=== PATIENT | female | born 1945 | race Caucasian/White ===

== ENCOUNTER → 2023-10-30 12:00 | Outpatient (REF) | payer MEDICARE, OTHER, SELFPAY ==
--- NOTE | 2023-10-02 08:23 | PN.DIAED02 ---
Referral
DSME Class Series Code: [id number]
Referred For: Diabetes Self-Management Training
PHI Release Authorization Form Signed: Yes
Patient Problems:
Current Active Problems
Problem Status Onset
Type 2 diabetes mellitus
Demographic
(1) Type 2 diabetes mellitus
Status: Acute Code(s): E11.9 - Type 2 diabetes mellitus without complications
Patient's primary language-: Italian
Education: College degree
Occupation: Retired
- Social
Primary Support Person: Self
Primary Care Takers: Self
Living Arrangements: Self
- Learning Methods
Preferred Method: Reading, Hands-on demonstration, Group discussion
Barriers to Learning: None
Glycemic Control
- Blood Glucose Monitoring Assessment
Date: 09/29/23
Blood glucose monitoring at home: Yes
Monitor Brands: Other (Unknown)
Frequency: 2x per day (new testing pattern given)
Time: fasting, after breakfast, after lunch, after dinner
- Hemoglobin A1c
Date: 09/18/23
A1C Percentage (%): 7.1 (8.5% 04/2023)
Medical History of Diabetes
Family Diabetes History: Grandfather
Previous Diabetes Education: No
Previous visit with Dietitian: No
Complications/Comorbidity/Specialist: Cataracts, Neuropathy (R. hand), Other / symptoms (Metastatic breast cancer of bone,osteoporosis, pernicious anemia)
Measures
- Anthropometrics
Height: 5 ft
Actual Weight: 137 lb 8 oz
- Blood Pressure / Pulse
Blood pressure: 124/63
- Diabetes Management
Medical Management for Diabetes: Complete physical exam (04/2023), Dental exam, Other (Covid 2021)
Self-Care
- Tobacco Usage
Do you now, or have you ever smoked?: Never smoked
- Alcohol & Drugs Usage
Drinks Alcohol: Yes
Amount/day: 1-2 drinks per day
- Meals & Dining
Meals & Dining: Patient skips meals: Yes (discussed), Food Intolerance / Allergy: No, Cultural / Advent Dietary Needs: No
Primary Food Heavy Repairer: Self
Primary Program Admin: Self
Dining Out Frequency: 1-3x per week (2)
- Physical Activity
Physical Limitation: No
Patient participates in physical Activity: Yes
Activity Types: Combination
Duration: 31-40 minutes
Frequency: 3-5x per week (5)
Intensity: Easy
- Patient-Self Assessment
Diabetes Knowledge: Good
Feelings About Diabetes: Acceptance, Sadness / Depression, Anger
General Health: Poor
Importance of Health: Extremely
Stress Level: High
Diabetes Interferes With:: Nothing
Depression Survey Score: 10
Care Plan
- Education Needs
Patient Education Needs: Diabetes disease process, Chronic complications, Acute complications, Medication, Monitoring, Physical activity, Psychosocial Adjustment, Nutritional management, Goal setting & problem solving
Recommended Diabetes Training Program based on assessment: Outpatient Diabetes Education Program
- Plan of Care
Plan of Care:
Current A1C 7.1%, down from 8.5% in 04/2023. Has a working glucometer and testing once a day. New testing pattern given to test FBS and 2 hr pp one meal/day. Paige has M/C (allot 1 test strip/day) so suggested testing every other day or 3 days
testing then 3 days off. She states she has plenty of test strips. handout on testing pattern and expected results given. Medication for diabetes is Farxiga. She appears to make healthy eating choices and is very active, [facility] [employer] [facility] and participates in classes -- and balance classes most Tues/Thurs. Paige also walks when the weather is nice. She was treated for breast cancer a few years ago with radiation and currently has metastasized to the bone(taking Ibrance).
Goals established, including making an eye appointment and directions to classroom given.
--- NOTE | 2023-10-02 09:20 | PN.DIAED04 ---
Education Record
- Education Record
Class Attended: Class 1 (pre registration 09/29/23 for outpt DSME classes starting 10/30/23.)
DSME Class Series Code: [id number]
Instructor: Registered Nurse (Ayleen Avilez, RN, BSN, [facility])
Class Curriculum:
Outpatient Diabetes Education Program:
Initial Assessment (45 minutes)
Individualized assessment
Develop personal strategies to promote health and behavior change
Development of diabetes self-management support plan
Class Length (mins): 60
Pre-Program Knowledge: Needs review / Assistance
Pre-Test Score (%): 76
Goals
- Goal 1
Being Active: Exercise more often ([facility], and walking.)
Goals To Be Evaluated: Exercise more often
- Goal 2
Healthy Eating: Make better food choices, Follow meal plan
Goals To Be Evaluated: Make better food choices. Follow meal plan
- Goal 3
Monitoring: Take blood sugar in the prescribed pattern (Handout on testing pattern and expected results given.)
Goals To Be Evaluated: Test BG-prescribed times
--- NOTE | 2023-10-31 14:19 | PN.DIAED14 ---
This is to notify you that your patient with diabetes, DANY DUNNE ( 1945), has enrolled in our diabetes self-management classes that are being held at [facility].
These classes will include an introduction to diabetes, diet, medication, exercise and prevention of complications. At the end of our class series, you will receive a report of your patient's participation and progress for your records.
Please contact me at the Diabetes Center, , if there is any particular information regarding your patient that might be helpful to me.
Sincerely,
NOHEMY Andre-, [facility]
Director
Diabetes & Nutrition Services
== END ==
LOC: DES 12:00
PROVIDERS: ATTENDING PHYSICIAN Internal Medicine
DX: E11.9 Type 2 diabetes mellitus without complications (principal)
CPT/HCPCS: 99078

== ENCOUNTER → 2023-11-06 12:00 | Outpatient (REF) | payer MEDICARE, OTHER, SELFPAY ==
--- NOTE | 2023-11-07 11:22 | PN.DIAED04 ---
Education Record
- Education Record
Class Attended: Class 2
DSME Class Series Code: [id number]
Instructor: Registered Dietitian (Marily Carvajal, RD, LDN, CDE)
Class Length (mins): 120
== END ==
LOC: DES 12:00
PROVIDERS: ATTENDING PHYSICIAN Internal Medicine
DX: E11.9 Type 2 diabetes mellitus without complications (principal)
CPT/HCPCS: 99078

== ENCOUNTER 2023-11-07 06:50 | Inpatient (IN) | payer MEDICARE, OTHER, SELFPAY ==
[2023-11-06 17:48] VITALS: BP 123/52
--- NOTE | 2023-11-06 19:06 | ED.GENMED ---
History of Present Illness
General
Chief Complaint: Abdominal Pain
Source: patient
Exam Limitations: none
Time Seen by Provider: 11/06/23 18:42
Nursing documentation reviewed up to this point in time: agreed with
History of Present Illness
History of Present Illness:
Patient is a 78-year-old female who presents to the ER for abdominal pain. Patient has a history of stage IV metastatic breast cancer and is on IBrance this morning when she had difficulty swallowing it and the coating started to dissolve in her
mouth. She had difficulty getting the pill down but finally did. She reports that she believes this upset her stomach and afterward had a lot of upper abdominal pain and vomiting. She reports she had projectile vomiting several times. Her pain
was upper abdominal region was very intense however now it has subsided and is still there but much better. She is no longer nauseous. She did have this pain however similar to this several days ago.
Past History
Past History
ED Past Medical History: Other (noncontributory )
ED Past Surgical History: Other (noncontributory )
Review of Systems
Review of Systems
Allergies reviewed?: Yes
All Other Systems: ROS reviewed and negative except as documented in HPI and ROS
Constitutional: Reports no symptoms; Denies fever, fatigue or chills
Respiratory: Reports no symptoms
Cardiac: Reports no symptoms
ABD/GI: Reports abdominal pain (epigastric pain ), nausea and vomiting
Musculoskeletal: Reports no symptoms
Skin: Reports no symptoms
Neurological: Reports no symptoms
Psychiatric: Reports no symptoms
Phy Exam
General Physical Exam
General Presentation: no apparent distress
General age: appears stated age
General Skin: warm and dry
General Habitus: normal
General Mental: alert
General Hydration: appears well hydrated
Gastrointestinal Exam
Gastrointestinal Exam: soft and other (epigastric tenderness )
Neurological Exam
Neurological Exam: alert and oriented x3
Musculoskeletal Exam
Musculoskeletal Exam: full ROM
Skin Exam
Skin Exam: normal color and warm/dry
Psychiatric Exam
Psychiatric Exam: normal mood/affect
Course
Orders/Labs/Results
Orders:
Orders
11/06/23 17:45
Electrocardiogram (*1) Urgent
Reason for Study: Abdominal Pain
EKG- Treatment ONCE
11/06/23 19:03
IV Insert/Care/Rem.- Treatment PRN
0.9% Sodium Chloride 1000 ml [Nss] 1,000 ml IV BOLUS
Famotidine [Pepcid] 20 mg IV NOW STA
11/06/23 19:04
US Abdomen Complete/Upper Urgent
Comment:
Reason For Exam: upper abd pain
11/06/23 19:16
Complete Blood Count/With Diff Urgent
Comprehensive Metabolic Panel Urgent
Lipase Urgent
11/06/23 21:07
Zosyn 3.375 grams IVPB NOW Piperacillin/Tazo 3.375 Gram [Zosyn] 3.375 gram in 50 ml IV NOW
Abnormal Lab Results
11/06/23
19:16
WBC 4.7 L 10^3/uL
(4.8-10.8)
RBC 3.64 L 10^6/uL
(4.20-5.40)
Hct 35.2 L %
(37.0-47.0)
MCH 33.0 H pg
(27.0-31.0)
RDW 16.0 H %
(11.5-14.5)
Absolute Lymphs (auto) 0.6 L 10^3/uL
(1.2-3.4)
Neutrophils % 80.5 H %
(42.2-75.2)
Lymphocytes % 12.0 L %
(20.5-51.1)
Basophils % 2.2 H %
(0-2)
Glucose 173 H mg/dl
(70-99)
Total Bilirubin 1.7 H mg/dl
(0.2-1.3)
AST 119 H U/L
(14-36)
ALT 68 H U/L
(0-35)
11/06/23 19:16
11/06/23 19:16
Vital Signs
Initial and Last Documented VS:
Initial Vital Signs
Temp Pulse Resp BP Pulse Ox
98.1 F 52 18 123/52 98
11/06/23 17:48 11/06/23 17:48 11/06/23 17:48 11/06/23 17:48 11/06/23 17:48
Last Documented Vital Signs
Temp Pulse Resp BP Pulse Ox
98.1 F 52 18 110/69 98
11/06/23 17:48 11/06/23 17:48 11/06/23 17:48 11/06/23 20:02 11/06/23 17:48
MDM/Problems Addressed
Differential Diagnosis Includes:
Not limited to gastritis, GERD, biliary colic, cholangitis
MDM/Problems Addressed:
Patient presents with upper abdominal pain had episode today with vomiting also had episode several days ago. Patient tender on exam no acute distress. She is on oral chemotherapy for metastatic breast cancer. Common bile duct enlarged to 12.4 mm
on ultrasound suggesting distal biliary obstruction LFTs minimally elevated.pt is immune comprimised wbc 4.7 . IV zosyn ordered. d/c w/ admitting hospitalist and GI, DR Wells.
Chronic conditions affecting care:
Metastatic breast cancer on oral chemo
*Radiology
Radiology exam reviewed: radiology read reviewed (Ultrasound showed normal gallbladder however CBD dilated to 12.4 mm suggesting possible distal biliary)
*Pulse Oximetry
Patient hypoxic: no
*Critical Care Note
Total Time (30-74mins, 75-104mins- exclusive of procedures): Not Applicable
Patient Management
Discussion with other providers: Supply And Distribution Manager (Gi Dr Wells )
ED Attending Note
-
Portions of this chart may have been created with voice recognition software.� Occasional wrong word or��sound alike� substitutions may have occurred due to the inherent limitations of voice recognition software.
Discharge Plan
Departure
Patient Disposition: Admit
Date of Disposition: 11/06/23
Time of Disposition: 21:11
Admit to: Med/Surg
Presentation/result/management discussed w/ accepting MD/DO: Hospitalist
Patient with high blood pressure during this ER visit?: No
Condition: Fair
Covid-19: Not Applicable
Discharge Problem:
Abdominal pain, Elevated LFTs
Prescriptions:
No Action
atenolol 25 MG tablet
25 mg PO DAILY
escitalopram oxalate 20 MG tablet
20 mg PO DAILY AT 0700
cholecalciferol (vitamin D3) 2,000 UNIT tablet
2,000 unit PO DAILY AT 0700
Referrals:
Mehran Terrell MD [Family Provider] -
Interventions
Interventions:
*Risk Screen - Suicide Last Done: 11/06/23 17:47
*General Assessment Last Done: 11/06/23 17:47
*Neglect/Abuse Screening Last Done: 11/06/23 17:47
ED- Fall Risk Assessment Last Done: 11/06/23 18:35
*ED COVID-19 Vaccine History Last Done: 11/06/23 17:47
YO-Uywcao-Uepvwgqtlz Assessment Last Done: 11/06/23 18:35
Discharge Date and Time
Print Language: TRINIDADIAN
[2023-11-06 19:14] VITALS: BMI 28.0
[2023-11-06] MEDS: PEPCID 20 MG IV (19:18)
[2023-11-06] MEDS: NSS 1000 IV (19:24)
[2023-11-06 19:38] LABS: % Basophils 2.2 % (0-2); % Eosinophils 0.4 % (0-6); % Immature Granulocytes 0.2 % (0-0.5); % Monocytes 4.7 % (1.7-9.3); % Neutrophils 80.5 % (42.2-75.2); Absolute Basophils 0.1 10^3/uL (0-0.2); Absolute Lymphocytes 0.6 10^3/uL (1.2-3.4); Absolute Monocytes 0.2 10^3/uL (0.1-0.6); Absolute Neutrophils 3.7 10^3/uL (1.4-6.5); Hematocrit 35.2 % (37.0-47.0); Mean Corp Hgb Conc. 34.1 g/dL (33.0-37.0); Mean Corpuscular Volume 96.7 fL (81.0-99.0); Mean Platelet Volume 9.2 fL (7.4-10.4); Nucleated Red Blood Cells % 0 %; Platelet Count 299 10^3/uL (130-400); Red Blood Cell Count 3.64 10^6/uL (4.20-5.40); White Blood Cell Count 4.7 10^3/uL (4.8-10.8)
[2023-11-06 19:55] LABS: ALT (SGPT) 68 U/L (0-35); AST (SGOT) 119 U/L (14-36); Albumin 4.2 g/dl (3.5-5.0); Alkaline Phosphatase 97 U/L (38-126); Blood Urea Nitrogen 17 mg/dl (7-17); Calcium 9.9 mg/dl (8.4-10.2); Carbon Dioxide 22 mmol/L (22-30); Chloride 100 mmol/L (98-107); Estimated Creatinine Clearance 50 ml/min; Glucose 173 mg/dl (70-99); Sodium 137 mmol/L (135-145); Total Bilirubin 1.7 mg/dl (0.2-1.3); Total Protein 6.7 g/dl (6.3-8.2); eGFR > 60.00
[2023-11-06 19:56] LABS: Lipase 185 U/L (23-300)
[2023-11-06 20:02] VITALS: BP 110/69
--- NOTE | 2023-11-06 21:25 | HPS.HSE ---
Family Physician
-
Family Physician: Mehran Terrell
Chief Complaint
-
Abdominal pain
History of Present Illness
This is a 78-year-old female was past medical history of hypertension, diabetes and breast cancer status post a left lumpectomy in 2009 who was recently found to have recurrence of disease with bony mets that comes into the emergency department with
1 day of acute abdominal pain.
Patient reports that she was taking Ibrance and felt like she has some trouble swallowing the pill. She had no nausea at a time. Then low while later she started having abdominal pain which appears to be localized to the right upper quadrant as
well as left upper quadrant. There is no radiation to the back chest or groin. She reported projectile but no bloody nonbilious emesis x 3. She denied any fevers or chills. She denies any sick contact. There are no new medication changes. No
recent surgeries. Patient denies any alcohol use.
On arrival in the ED she was afebrile blood pressure was 110/69 pulse of 52 with a normal oxygen saturation. ECG showed a sinus bradycardia at [address] or T wave changes. CBC shows a white count of 4.7 hemoglobin of 12 and a glucose
and a platelet count of 299. Chemistries were completely within normal limits AST was elevated at 119 and ALT mildly elevated at 68 lipase was negative. A right upper and ultrasound showed dilation of the common bile duct to above 12.4 mm.
Medical History
Past Medical History
Past Medical History: Reports Cancer (breast ca), HTN and NIDDM
Past Surgical History: Reports Other (Lumpectomy)
Additional Past Surgical History:
Lumpectomy
Social History
Tobacco: Non-smoker
Alcohol: None
Drug: None
Personal:
Living: With Family
Employment: Retired
Family History
Family History: Not pertinent
Allergies / Home Medications
Allergies reflects when Allergies were last updated in [employer].
Home Medications with original date entered in [employer]
Allergy/Medication List:
Allergies
Allergy/AdvReac Type Severity Reaction Status Date / Time
No Known Allergies Allergy Unverified 07/05/21 11:20
Home Medications
atenolol 25 mg tablet 25 mg PO DAILY 06/23/21
cholecalciferol (vitamin D3) 50 mcg (2,000 unit) [place] 2[place] [address]/23/21
escitalopram oxalate 20 mg tablet 20 [place] [address]06/23/21
Review of Systems
-
History Source: Patient
Constitutional: Reports No Symptoms
EENT: Reports No Symptoms
Respiratory: Reports No Symptoms
Cardiac: Reports No Symptoms
Abdomen/GI: Reports Abdominal Pain and Vomiting
: Reports No Symptoms
Musculoskeletal: Reports No Symptoms
Skin: Reports No Symptoms
Neurological: Reports No Symptoms
Endocrine: Reports No Symptoms
Hematologic/Lymphatic: Reports No Symptoms
Psych: Reports No Symptoms
Physical Exam
Vital Signs
Vital Signs
Temp Pulse Resp BP Pulse Ox
98.1 F 52 18 110/69 98
11/06/23 17:48 11/06/23 17:48 11/06/23 17:48 11/06/23 20:02 11/06/23 17:48
Physical Exam
General: No Apparent Distress and Comfortable
HEENT: NormoCephalic, Anicteric, Moist mucous membranes and Atraumatic
Respiratory: Clear
Cardiac: S1/S2, Regular Rhythm and Bradycardia
Breast: Deferred by me
GI: Soft, Non Tender, Non Distended and Normal Bowel Sounds
Rectal: Deferred by Provider
Genito-urinary: Deferred by me
Musculoskeletal: No Clubbing, No Cyanosis and No Edema
Skin: Warm
Neuro: AO x 3
Hematologic/Lymphatic: No Lymphadenopathy
Psych: Calm
Laboratory Results
-
11/06/23 19:16
11/06/23 19:16
Laboratory Results
Total Bilirubin 1.7 mg/dl (0.2-1.3) H 11/06/23 19:16
AST 119 U/L (14-36) H 11/06/23 19:16
ALT 68 U/L (0-35) H 11/06/23 19:16
Alkaline Phosphatase 97 U/L (38-126) 11/06/23 19:16
Lipase 185 U/L (23-300) 11/06/23 19:16
Data Reviewed
-
Ultrasound: Report Reviewed by me
Medical Tests (Nuc Med, Echo, EKG etc): Image Personally Visualized and interpreted
Lab Data: Labs Reviewed by me
Old Records: Reviewed
Impression/Plan
-
IMPRESSION:
PLAN:
1. Abdominal pain - Acute onset of bilateral upper quadrant abdominal pain worse with movement. She has slight elevation in AST/ALT. Normal Lipase. RUQ U/S with dilation of CBD to 12.4. No stone or sludge in GB. No cholecystitis. Currently
pain is resolved. Suspect transient billiary colic.
- admit to med/surg obs
- npo for now except sips
- pain control and antiemetics
- iv fluids
- trend LFTs
- MRCP
- GI consult
2. HTN
- continue atenolol
3. DM II - On farxiga at home
- npo, low dose correction q 6 hours
DVT PPX - lovenox sq
Code status - full
[2023-11-06] MEDS: ZOSYN 50 IV (21:27)
[2023-11-06 21:31] LABS: Glucose - Point of Care 139 mg/dl (70-99)
--- NOTE | 2023-11-06 22:30 | TRANSFER ---
pt arrived via stretcher from ED. pt ambulated from stretcher to bed without assistance. VSS. oriented to room, call anderson within reach. plan of care ongoing.
[2023-11-06 22:46] VITALS: BP 133/60; BMI 27.2
[2023-11-06] MEDS: LR 1000 IV (22:56)
[2023-11-06] MEDS: MELATONIN 5 MG PO (23:05)
[2023-11-07 00:13] LABS: Glucose - Point of Care 101 mg/dl (70-99)
[2023-11-07 05:56] LABS: Glucose - Point of Care 87 mg/dl (70-99)
--- NOTE | 2023-11-07 06:35 | CON.GI ---
Consultation
-
Date/Time Consultation Requested: 11/06/23, 21:35
Date/Time Consultation Performed: 11/07/2023, 06:36
Requesting Provider: Dr. Marti Love
Performing Provider: Dr. Armaan Licea
Reason for Consultation: Abd pain, CBD dilation
Medical History
Chief Complaint / HPI
Chief Complaint: Abdominal pain
History of Present Illness:
Ms Butterfield is a 78 y.o female with past medical history of HTN, DM and metastatic breast cancer (s/p L lumpectomy in 2009) c/b recurrence with bony mets (on Ibrance) who presented to the ED with abdominal pain. Found to have elevated LFTs and US
with CBD dilation up to 12 mm. Gastroenterology has been consulted for further evaluation and management.
Patient states she was in her USOH and until yesterday when she felt vague epigastric and RUQ abdominal pain. She initially attributed her symptoms possibly due to difficulty swallowing her Ibrance earlier in the morning as she felt it partially
dissolve in her mouth and while swallowing. Denies any prior dysphagia or odynophagia. However, her abdominal pain continued to wax and wane but became progressively worse with nausea and subsequent NBNB emesis. She had a total of three episodes
while at home. No other known sick contacts. Denies any chronic abdominal pain in the past, but does note she had similar symptoms a few times last week but self-resolved. No fevers, chills, night sweats or other constitutional symptoms. Further
noted darker urine, but no other scleral icterus or jaundice. Given her worsening symptoms she came to the ED for further evaluation. Otherwise, no other significant EtOH use or NSAIDs. She is not on any antiplatelets or anticoagulation. No prior
EGD or colonoscopy. Had a previous Cologuard several years ago and reportedly normal.
In the ED, patient was afebrile and HD-stable. Labs notable for BUN 17 and Inside Technical Sales Representative 0.8. LFTs with AST 119, ALT 68, ALP 97, and T Bili 1.7 (previously normal back on 03/2021). Lipase 185. CBC with WBC 4.7, Hgb 12.0 and plts 299. Abdominal US revealed
normal gallbladder without stones, however with dilation of the CBD up to 12.4 mm suggesting possible distal biliary obstruction. Patient was admitted to medicine for further management.
This morning, she admits complete resolution of her abdominal pain without any further nausea or vomiting. Repeat LFTs pending this AM.
Past Medical History
Past Medical History: Other (Breast cancer with bone mets, HTN, NIDDM)
Past Surgical History: Other (Lumpectomy)
Social History
Tobacco: Non-Smoker
Alcohol: None
Drug: None
Family History
Family History: Reviewed & Not Pertinent
Allergies / Home Medications
Allergy/AdvReac Type Severity Reaction Status Date / Time
No Known Allergies Allergy Unverified 07/05/21 11:20
�Medication �Instructions �Recorded
atenolol 25 mg tablet 25 mg PO DAILY 06/23/21
escitalopram oxalate 20 mg tablet 20 mg PO DAILY 06/23/21
Ibrance 1 tab PO USEASDIRECTD 11/06/23
cholecalciferol (vitamin D3) 50 50 mcg PO DAILY 11/06/23
mcg (2,000 unit) tablet
dapagliflozin propanediol 10 mg 10 mg PO DAILY 11/06/23
tablet (Farxiga)
letrozole 2.5 mg tablet 2.5 mg PO DAILY 11/06/23
Review of Systems
-
All other systems: A 12 pt ROS was Negative except as stated above in HPI
Vital Signs
Temp Pulse Resp BP Pulse Ox
98.1 F 67 18 133/60 98
11/06/23 22:46 11/06/23 22:46 11/06/23 22:46 11/06/23 22:46 11/06/23 23:50
Physical Exam
Exam
General: Well Developed, Well Nourished, No Apparent Distress and Comfortable
HEENT: Anicteric and Moist Mucous Membranes
Respiratory: Clear
Cardiac: S1/S2
GI: Soft, Non Tender and Non Distended
Musculoskeletal: No Edema
Skin: Warm
Neuro: AO x 3 and Nonfocal/Grossly Intact
Psych: Calm
Results
WBC 4.7 10^3/uL (4.8-10.8) L 11/06/23 19:16
Hgb 12.0 g/dL (12.0-16.0) 11/06/23 19:16
Hct 35.2 % (37.0-47.0) L 11/06/23 19:16
MCV 96.7 fL (81.0-99.0) 11/06/23 19:16
Plt Count 299 10^3/uL (130-400) 11/06/23 19:16
Absolute Neuts (auto) 3.7 10^3/uL (1.4-6.5) 11/06/23 19:16
Sodium 137 mmol/L (135-145) 11/06/23 19:16
Potassium 4.0 mmol/L (3.5-5.1) 11/06/23 19:16
Chloride 100 mmol/L (98-107) 11/06/23 19:16
Carbon Dioxide 22 mmol/L (22-30) 11/06/23 19:16
BUN 17 mg/dl (7-17) 11/06/23 19:16
Creatinine 0.8 mg/dL (0.6-1.0) 11/06/23 19:16
Calcium 9.9 mg/dl (8.4-10.2) 11/06/23 19:16
Total Bilirubin 1.7 mg/dl (0.2-1.3) H 11/06/23 19:16
AST 119 U/L (14-36) H 11/06/23 19:16
ALT 68 U/L (0-35) H 11/06/23 19:16
Alkaline Phosphatase 97 U/L (38-126) 11/06/23 19:16
Lipase 185 U/L (23-300) 11/06/23 19:16
Diagnostic Image Results:
Abd US 11/06/2023- Impression: The gallbladder is normal, however, there is dilatation of the common bile duct to 12.4 mm suggesting possible distal biliary obstruction. Correlation with patient's liver function tests is recommended and if clinically
indicated, this could be further evaluated with MRCP
Prior GI Procedures: No prior EGD or Colonoscopy (previous negative Cologuard per patient several years ago)
Assessment / Plan
-
Ms Butterfield is a 78 y.o female with past medical history of HTN, DM and metastatic breast cancer (s/p L lumpectomy in 2009) c/b recurrence with bony mets (on Ibrance and letrozole) who presented to the ED with abdominal pain. Found to have elevated
LFTs and US with CBD dilation up to 12 mm. Gastroenterology has been consulted for further evaluation and management.
#Biliary Colic
#New CBD Dilation on US (CBD 12)
#C/f Choledocholithiasis
#Elevated LFTs
#Nausea/Vomiting
#Hx of Metastatic Breast Cancer (w/ bone mets)
Impression: Patient presenting with RUQ and epigastric abdominal pain most consistent with biliary colic along with nausea/vomiting. LFTs mildly elevated with AST 119, ALT 68, ALP 97, and T Bili 1.7 and normal lipase (185). Previous LFTs normal in
the past. Abd US without any discrete stone or sludge in GB, however CBD dilatation up to 12.4 without overt filling defects. Intermediate risk for choledocholithiasis and may have possibly passed small stone versus sludge. No other biliary
strictures or liver lesions visualized on Abd US given her history of stage IV breast cancer. Otherwise, no signs or symptoms to suggest cholangitis.
Recommendations:
- Keep NPO
- Trend LFTs with total fractionated T Bili q daily
- Obtain MRI/MRCP WWO contrast for further evaluation
- No plans for endoscopic intervention at this time. Will await MRCP and if (+), will discuss timing of ERCP
- Monitor off IV antibiotics
- Pain control and IV anti-emetics PRN
- Rest of care per primary team
GI team will continue to follow while inpatient.
Data Reviewed
-
Radiology: Report Reviewed by me
Ultrasound: Image Personally Visualized and interpreted and Report Reviewed by me
-
-
Thank you for consultation and allowing me to participate in the patient's care. Please call the data operations manager GI physician during the after hours with any questions or concerns.
[2023-11-07 07:30] VITALS: BP 149/68
[2023-11-07] MEDS: LEXAPRO 20 MG PO (07:46)
[2023-11-07] MEDS: FEMARA 2.5 MG PO (07:47)
[2023-11-07] MEDS: TENORMIN 25 MG PO (07:47)
[2023-11-07] MEDS: PROTONIX IV 40 MG IV (07:48)
[2023-11-07] MEDS: NSS (PRESERVATIVE FREE) 10 ML IV (07:48)
[2023-11-07 07:55] LABS: Hematocrit 34.6 % (37.0-47.0); Hemoglobin 11.9 g/dL (12.0-16.0); Mean Corp Hgb Conc. 34.4 g/dL (33.0-37.0); Mean Corpuscular Hgb 34.4 pg (27.0-31.0); Mean Platelet Volume 9.3 fL (7.4-10.4); Platelet Count 268 10^3/uL (130-400); Red Blood Cell Count 3.46 10^6/uL (4.20-5.40); White Blood Cell Count 2.9 10^3/uL (4.8-10.8)
[2023-11-07 08:34] LABS: ALT (SGPT) 344 U/L (0-35); AST (SGOT) 588 U/L (14-36); Albumin 3.8 g/dl (3.5-5.0); Alkaline Phosphatase 114 U/L (38-126); Blood Urea Nitrogen 11 mg/dl (7-17); Calcium 9.7 mg/dl (8.4-10.2); Carbon Dioxide 23 mmol/L (22-30); Chloride 106 mmol/L (98-107); Direct Bilirubin 1.9 mg/dl (0.0-0.4); Estimated Creatinine Clearance 57 ml/min; Glucose 95 mg/dl (70-99); Potassium 4.3 mmol/L (3.5-5.1); Sodium 139 mmol/L (135-145); Total Bilirubin 3.3 mg/dl (0.2-1.3); Total Protein 6.3 g/dl (6.3-8.2); eGFR > 60.00
[2023-11-07] MEDS: ATIVAN 0.5 MG PO ×2 (08:49→20:30)
--- NOTE | 2023-11-07 09:38 | W.PN.HOSP.TC ---
Today's Communication/Plan
-
Await MRCP
Will c/w IVF, add IV PPI
Add PRN Ativan also
Assessment / Plan
Assessment / Plan
Physical exam:
General: Well Developed, Well Nourished, No Apparent Distress and Comfortable
HEENT: Anicteric and Moist Mucous Membranes
Respiratory: Clear
Cardiac: S1/S2
GI: Soft, Non Tender and Non Distended
Musculoskeletal: No Edema
Skin: Warm
Neuro: AO x 3 and Nonfocal/Grossly Intact
Psych: Pleasant, anxious at times.
# Biliary Colic with new CBD Dilation on US
Acute onset of bilateral upper quadrant abdominal pain worse with movement. She has slight elevation in AST/ALT. Normal Lipase. RUQ U/S with dilation of CBD to 12.4. No stone or sludge in GB. No cholecystitis. Currently pain is resolved.
- npo for now except sips
- pain control and antiemetics
- IVF fluids
- trend LFTs
- MRCP
- GI and surgery consulted, appreciate help
# Essential HTN
- continue atenolol
# DM II - On Farxiga at home
- npo, low dose correction q 6 hours
# Anxiety, insomnia
d/w pt, will do PRN Ativan
DVT PPX - lovenox sq
Code status - full
#C/f Choledocholithiasis
#Elevated LFTs
#Nausea/Vomiting
Anticipated Discharge: > 48 hours
Subjective/Interval History
-
Date of Service: November 07, 2023
She denies chest pain
reports anxiety and insomnia
No nausea or abd pain this morning
Objective Data
-
Labs:
Laboratory Results
11/07/23
07:38
WBC 2.9 L
Hgb 11.9 L
Hct 34.6 L
Plt Count 268
Sodium 139
Potassium 4.3
Chloride 106
Carbon Dioxide 23
BUN 11
Creatinine 0.7
Glucose 95
Calcium 9.7
Total Bilirubin 3.3 H D
AST 588 H*
ALT 344 H
Alkaline Phosphatase 114
Vital Signs:
Vital Signs
Temp Pulse Resp BP Pulse Ox
97.8 F 61 20 149/68 100
11/07/23 07:30 11/07/23 07:30 11/07/23 07:30 11/07/23 07:30 11/07/23 07:30
I&O
11/06/23 11/07/23 11/08/23
06:59 06:59 06:59
Intake Total 0 / 0
Balance 0 / 0
[2023-11-07] MEDS: ROCEPHIN 1000 MG IV (10:35)
[2023-11-07] MEDS: STERILE WATER FOR INJECTION 10 ML IV (10:35)
[2023-11-07] MEDS: LR 1000 IV (11:37)
[2023-11-07 11:58] LABS: Glucose - Point of Care 106 mg/dl (70-99)
--- NOTE | 2023-11-07 14:58 | W.PN.UPDATE ---
Update Note
Progress Note Update
11/05 MRCP with patient with noted GB thickening and/or edema, possible acalculous cholecystitis vs hepatitis . slight increased CHD dilated from 2021 and CBD simular dilation to 2021. no noted CBD stone, focal ovoid dilatation of main panc duct
in neck of pancreas stable from 2021. trace fluid adjacent to liver and spleen.
I reviewed MRCP with patient and Dr. Licea as above with concern for acalculous cholecystitis vs hepatitis vs passed stone vs medication related(newly started Ibrance)
plan for clear diet
surgical eval
Dr. Wren left message with pt oncologist -- Dr. Miriam Hernández at [facility] with update [phone]
reviewed with nursing staff
per lexicomp on [facility]:
Gastrointestinal: Decreased appetite (15% to 16%), diarrhea (24% to 26%; grade 3: 1%), nausea (34% to 35%; grade 3: <1%), stomatitis (28% to 30%; grade 3: 1%), vomiting (16% to 19%; grade 3: 1%)
Hematologic & oncologic: Anemia (24% to 78%; grade 3: 3% to 6%; grade 4: <1%), leukopenia (39% to 53%; grade 3: 24% to 30%; grade 4: 1%), neutropenia (80% to 83%; grade 3: 55% to 56%; grade 4: 10% to 11%)�(table 1), thrombocytopenia (16% to 23%;
grade 3: 1% to 2%; grade 4: <=%)
Hepatic: Increased serum alanine aminotransferase (6% to 43%), increased serum aspartate aminotransferase (8% to 52%)
[2023-11-07 15:25] VITALS: BP 142/60
[2023-11-07 16:56] LABS: Glucose - Point of Care 142 mg/dl (70-99)
[2023-11-07] MEDS: LOVENOX 40 MG SC (17:13)
--- NOTE | 2023-11-07 17:27 | CON.GS ---
Medical History
-
Chief Complaint: Epigastric abdominal discomfort
History of Present Illness:
Patient is a 78 yo F with a PMH of HTN, NIDDM, and stage IV breast cancer (on Ibrance) who presents to the hospital with intermittent central and epigastric abdominal discomfort. She states that she first developed mild symptoms last week and
approximately or Monday. She then subsequently developed severe epigastric/central abdominal pain on Monday which lasted several hours. She associates the symptoms with a dosage of Ibrance which she has recently started. Symptoms also
ultimately improved. However, her symptoms reoccurred on Monday prompting presentation to the ED. This particular episode was shortly following a tunafish sandwich. Described as a burning deeper discomfort. She denies any nausea or vomiting. He
denies any jaundice, pale stools, or tea colored urine. He denies having prior attacks of RUQ or epigastric abdominal pain. Currently she states that her symptoms are resolved and she is pain-free.
Past Medical History
Past Medical History: Cancer (Stage IV breast cancer), HTN and NIDDM
Past Surgical History: Other (Lumpectomy)
Social History
Tobacco: Non-Smoker
Alcohol: Occasional
Drug: None
Personal:
Living: With Family
Employment: Retired
Family History
Family History: Reviewed & Not Pertinent
Allergies / Home Medications
Allergy/AdvReac Type Severity Reaction Status Date / Time
No Known Allergies Allergy Unverified 07/05/21 11:20
�Medication �Instructions �Recorded �Confirmed �Type
atenolol 25 mg tablet 25 mg PO DAILY Blood Pressure 06/23/21 11/06/23 History
escitalopram oxalate 20 mg tablet 20 mg PO DAILY Depression 06/23/21 11/06/23 History
Ibrance 1 tab PO USEASDIRECTD Cancer 11/06/23 11/06/23 History
cholecalciferol (vitamin D3) 50 50 mcg PO DAILY Supplement 11/06/23 11/06/23 History
mcg (2,000 unit) tablet
dapagliflozin propanediol 10 mg 10 mg PO DAILY Diabetes 11/06/23 11/06/23 History
tablet (Farxiga)
letrozole 2.5 mg tablet 2.5 mg PO DAILY Cancer 11/06/23 11/06/23 History
Review of Systems
-
A 10 point review of systems was completed, and was negative except as per HPI.
Physical Exam
Vital Signs
Temp Pulse Resp BP Pulse Ox
97.9 F 66 16 142/60 99
11/07/23 15:25 11/07/23 15:25 11/07/23 15:25 11/07/23 15:25 11/07/23 15:25
11/06/23 11/07/23 11/08/23
06:59 06:59 06:59
Actual Weight 63.248 kg
Body Mass Index (BMI) 27.2
Lab Results
11/07/23 07:38
11/07/23 07:38
WBC 2.9 10^3/uL (4.8-10.8) L 11/07/23 07:38
Hgb 11.9 g/dL (12.0-16.0) L 11/07/23 07:38
Hct 34.6 % (37.0-47.0) L 11/07/23 07:38
Plt Count 268 10^3/uL (130-400) 11/07/23 07:38
Abs Immat Gran (auto) 0.0 10^3/uL (0-0.05) 11/06/23 19:16
Neutrophils % 80.5 % (42.2-75.2) H 11/06/23 19:16
Physical Exam
General: Well Developed, Well Nourished and No Apparent Distress
HEENT: Normocephalic and Scleral Icterus
Respiratory: Non Labored Respirations
Cardiac: Regular Rhythm
GI: Soft, Non Tender (Negative Zayas's sign), Non Distended and Other (Nonperitoneal)
Musculoskeletal: No Edema
Skin: Warm and Dry
Neuro: Nonfocal/Grossly Intact
Data Reviewed
-
Ultrasound: Image Personally Visualized and interpreted and Report Reviewed by me
MRI: Image Personally Visualized and interpreted and Report Reviewed by me
Labs: Labs Reviewed by me
Old Records: Reviewed
Assessment / Plan
-
Patient is a 78 yo F p/w episode of likely choledocholithiasis with past debris or sludge versus medication toxicity
The natural history and pathophysiology of biliary and stone disease was discussed. Anatomy was reviewed utilizing pictorial images. Workup thus far including ultrasound, MRI, and labs were reviewed. Prior CT scan imaging was reviewed.
Interestingly she has had prior dilation of her CBD raising the question as to whether or not she has a tighter sphincter of Oddi leading to this more chronic dilation as well as symptoms with passage of small debris or sludge. No clinical evidence
of acute cholecystitis. No prior history of biliary colic. No masses, lesions, or strictures identified on MRI imaging. Role of cholecystectomy in preventing future episodes somewhat in question given the lack of stones or debris visualized on
both ultrasound and MRI. Additionally, she has had slightly increased risk for infectious complications given chemotherapy. That being said, the role of cholecystectomy in preventing future episodes was reviewed. No plans for cholecystectomy
today or likely during this admission. Repeat labs in AM. If continue to rise would obtain a HIDA scan. May need further evaluation by GI with EUS. If labs improving and symptoms remain resolved, would trial low-fat diet and discharge with
outpatient management. We discussed that should she have recurrent episodes of discomfort, then would proceed with cholecystectomy at that time. GI currently engaging Oncology to help determine if symptoms could be explained by Ibrance.
-- No plans for cholecystectomy
-- OK for clears
-- Repeat CMP in AM, consider HIDA if labs increasing
[2023-11-07 20:59] LABS: Glucose - Point of Care 139 mg/dl (70-99)
[2023-11-07 23:30] VITALS: BP 133/66
[2023-11-08] MEDS: LR 1000 IV (02:15)
--- NOTE | 2023-11-08 03:30 | DOWNTIME ---
There was a orderTalk Client Extractor Puller Downtime on 11/08/2023 from 0100 to 11/08/2023 at 0300. Downtime documentation of patient's care, including medication administrations, has been reconciled in the electronic record per guidelines. Refer to the
patient's paper chart under the miscellaneous tab to see printed paper medication records and downtime forms.
[2023-11-08] MEDS: FEMARA 2.5 MG PO (07:51)
[2023-11-08] MEDS: TENORMIN 25 MG PO (07:51)
[2023-11-08] MEDS: LEXAPRO 20 MG PO (07:51)
[2023-11-08] MEDS: NSS (PRESERVATIVE FREE) 10 ML IV (07:52)
[2023-11-08] MEDS: PROTONIX IV 40 MG IV (07:52)
[2023-11-08 08:19] LABS: Glucose - Point of Care 124 mg/dl (70-99)
[2023-11-08 08:21] LABS: Hematocrit 32.2 % (37.0-47.0); Hemoglobin 11.2 g/dL (12.0-16.0); Mean Corp Hgb Conc. 34.8 g/dL (33.0-37.0); Mean Corpuscular Hgb 34.5 pg (27.0-31.0); Mean Corpuscular Volume 99.1 fL (81.0-99.0); Mean Platelet Volume 9.4 fL (7.4-10.4); Platelet Count 237 10^3/uL (130-400); Red Blood Cell Count 3.25 10^6/uL (4.20-5.40); Red Cell Dist. Width 16.2 % (11.5-14.5); White Blood Cell Count 2.3 10^3/uL (4.8-10.8)
[2023-11-08 08:53] LABS: ALT (SGPT) 226 U/L (0-35); AST (SGOT) 135 U/L (14-36); Albumin 3.7 g/dl (3.5-5.0); Alkaline Phosphatase 115 U/L (38-126); Blood Urea Nitrogen 8 mg/dl (7-17); Calcium 9.5 mg/dl (8.4-10.2); Carbon Dioxide 21 mmol/L (22-30); Chloride 104 mmol/L (98-107); Estimated Creatinine Clearance 66 ml/min; Glucose 126 mg/dl (70-99); Potassium 4.1 mmol/L (3.5-5.1); Sodium 139 mmol/L (135-145); Total Bilirubin 1.2 mg/dl (0.2-1.3); eGFR > 60.00
--- NOTE | 2023-11-08 09:13 | W.PN.HOSP.TC ---
Addendum entered and electronically signed by Margi Wren MD 11/08/23 11:17:
Addendum:
I spoke to her oncologist and updated him
DR Miriam Hernández at [phone]
Original Note:
Today's Communication/Plan
-
Discharge
Assessment / Plan
Assessment / Plan
Physical exam:
General: Well Developed, Well Nourished, No Apparent Distress and Comfortable
HEENT: Anicteric and Moist Mucous Membranes
Respiratory: Clear
Cardiac: S1/S2
GI: Soft, Non Tender and Non Distended
Musculoskeletal: No Edema
Skin: Warm
Neuro: AO x 3 and Nonfocal/Grossly Intact
Psych: Pleasant, anxious at times.
# Biliary Colic with new CBD Dilation on US and MRCP
No lesion per MRI or stone
Liver enzymes came down
No abd pain or nausea
c/w low fat diet
dc home to f/w GI for EUS
- GI and surgery consulted, appreciate help
# Essential HTN
- continue atenolol
# DM II - On Farxiga at home
# Anxiety, insomnia
d/w pt, will do PRN Ativan
DVT PPX - lovenox sq
Code status - full
Total discharge time spent to see the patient, examine the patient on the floor, review data and lab results, discuss discharge plan with patient, nursing staff around 65 minutes
Anticipated Discharge: Today
Subjective/Interval History
-
Date of Service: November 08, 2023
She feels hungry
No abd pain
No nausea
Objective Data
-
Labs:
Laboratory Results
11/08/23
07:50
WBC 2.3 L*
Hgb 11.2 L
Hct 32.2 L
Plt Count 237
Sodium 139
Potassium 4.1
Chloride 104
Carbon Dioxide 21 L
BUN 8
Creatinine 0.6
Glucose 126 H
Calcium 9.5
Total Bilirubin 1.2 D
AST 135 H
ALT 226 H
Alkaline Phosphatase 115
Vital Signs:
Vital Signs
Temp Pulse Resp BP Pulse Ox
97.8 F 66 16 146/68 98
11/08/23 07:55 11/08/23 07:55 11/08/23 07:55 11/08/23 07:51 11/08/23 07:55
I&O
11/07/23 11/08/23 11/09/23
06:59 06:59 06:59
Intake Total 0 / 0
Output Total 150 / 150
Balance 0 / 0 -150 / -150
[2023-11-08] MEDS: STERILE WATER FOR INJECTION 10 ML IV (09:21)
--- NOTE | 2023-11-08 09:21 | W.PN.GI.CBS2 ---
Today's Communication / Plan
-
MRCP (-) for stones and/or sludge. LFTs improving with resolved T Bili. Recommend outpatient GI f/u for consideration of EUS as outpatient. Rest of care as outlined below. GI team will sign-off. Please call back with any questions or concerns.
Assessment / Plan
-
Ms Butterfield is a 78 y.o female with past medical history of HTN, DM and metastatic breast cancer (s/p L lumpectomy in 2009) c/b recurrence with bony mets (on Ibrance and letrozole) who presented to the ED with abdominal pain. Found to have elevated
LFTs and US with CBD dilation up to 12 mm. Gastroenterology has been consulted for further evaluation and management.
#Abd Pain 2/2 #Biliary Colic
#Biliary Ductal Dilation
#C/f Choledocholithiasis, likely passed small stone versus sludge
#Elevated LFTs
#Nausea/Vomiting
#Hx of Metastatic Breast Cancer (w/ bone mets)
Impression: Patient presenting with RUQ and epigastric abdominal pain most consistent with biliary colic along with nausea/vomiting. LFTs mildly elevated with AST 119, ALT 68, ALP 97, and T Bili 1.7 and normal lipase (185). Previous LFTs normal in
the past. Abd US without any discrete stone or sludge in GB, however CBD dilatation up to 12.4 without overt filling defects. Intermediate risk for choledocholithiasis and may have possibly passed small stone versus sludge. No other biliary
strictures or liver lesions visualized on Abd US given her history of stage IV breast cancer. Otherwise, no signs or symptoms to suggest cholangitis.
MRI/MRCP w/out contrast 11/07/2023: No evidence of cholelithiasis; rim of increased T2-weighted signal surrounding the gallbladder lumen compatible with gallbladder wall thickening and/or pericholecystic edema (nonspecific but c/f acalculous
cholecystitis ?); dilation of the CHD slightly increased from prior CT and dilation of the CBD up to 8.7 along with focal ovoid dilation of the main PD measuring 8 mm; otherwise no overt focal pancreatic lesion, cystic masses or choledocholithiasis
(although unenhanced examination as without IV contrast)
Repeat LFTs this AM improved with AST 588 -> 135, ALT 344 -> 226, ALP wnl (114 -> 115) and T Bili 3.3 -> 1.2, further supporting that she likely passed either a small stone versus sludge. No concern for DILI as would not account for her
symptomatology (given concern for recent symptoms since starting Ibrance) or pattern in LFT abnormalities. Much less likely cholecystitis as she is without any symptoms to suggest this and exam reassuring.
Recommendations:
- Okay for low-fat diet from GI perspective
- Recommend repeat LFTs in 1-2 weeks as outpatient with her PCP
- Will check viral hepatitis serologies for completion. No concern for DILI and defer further serologic w/u at this time as without prior chronic liver injury
- No plans for endoscopic intervention at this time given (-) MRCP
- However, given suspicion for microlithiasis and/or passed sludge along with both her biliary and pancreatic duct dilation (ie double duct sign) she should have an EUS for further evaluation
- Remains on IV abx per primary team, no signs or symptoms to suggest cholangitis
- General surgery consulted given c/f cholecystitis as mentioned on MRCP, but doubt clinically and suspect reactive thickening due to transient small stone/sludge. Defer further imaging (ie HIDA scan) as per surgery
- Pain control and IV-antiemetics PRN
- Rest of care per primary team
GI team will sign-off. Please call back with any questions or concerns.
Subjective
Subjective
Date of Service: November 08, 2023
- MRI/MRCP w/out contrast 11/07/2023: No evidence of cholelithiasis; rim of increased T2-weighted signal surrounding the gallbladder lumen compatible with gallbladder wall thickening and/or pericholecystic edema (nonspecific but c/f acalculous
cholecystitis ?); dilation of the CHD slightly increased from prior CT and dilation of the CBD up to 8.7 along with focal ovoid dilation of the main PD measuring 8 mm; otherwise no overt focal pancreatic lesion, cystic masses or choledocholithiasis
(although unenhanced examination as without IV contrast)
- Repeat LFTs this AM improved with AST 588 -> 135, ALT 344 -> 226, ALP wnl (114 -> 115) and T Bili 3.3 -> 1.2
- Otherwise, no acute events overnight
Feeling well, resting comfortably without any RUQ abdominal pain or discomfort. Notes complete resolution of her pain since her admission. No nausea or vomiting, but reports feeling quite hungry. No fevers, chills or other constitutional symptoms.
Objective
Data Reviewed
Laboratory Data:
Laboratory Results
11/08/23 07:50
11/08/23 07:50
Laboratory Results
Magnesium 2.0 mg/dl (1.6-2.3) 11/07/23 07:38
Total Bilirubin 1.2 mg/dl (0.2-1.3) D 11/08/23 07:50
AST 135 U/L (14-36) H 11/08/23 07:50
ALT 226 U/L (0-35) H 11/08/23 07:50
Alkaline Phosphatase 115 U/L (38-126) 11/08/23 07:50
Lipase 185 U/L (23-300) 11/06/23 19:16
Vital Signs and I&O:
Vital Signs
Temp Pulse Resp BP Pulse Ox
97.8 F 66 16 146/68 98
11/08/23 07:55 11/08/23 07:55 11/08/23 07:55 11/08/23 07:51 11/08/23 07:55
I&O
11/07/23 11/08/23 11/09/23
06:59 06:59 06:59
Intake Total 0 / 0
Output Total 150 / 150
Balance 0 / 0 -150 / -150
Physical Exam
Physical Exam
HEENT: Anicteric and Moist mucous membranes
Cardiology: Normal Sinus Rhythm
Pulmonary: Clear
GI: Soft, Non Distended, Flat and Other (No RUQ tenderness, (-) Zayas sign)
Extremities: No Edema
Neuro: Non Focal
[2023-11-08] MEDS: ROCEPHIN 1000 MG IV (09:23)
--- NOTE | 2023-11-08 11:53 | CM ---
TIFFANY met with Charlene prior to discharge. She lives with her SO in a 2 story home with 2 entry steps. At the time of my visit Charlene was ambulating independently in the room, visiting with her roommate at the time of my visit.
Charlene will return home with no needs.
Pharmacy: [facility]
PCP: Mehran Terrell
[2023-11-08 12:20] VITALS: BP 120/64
--- NOTE | 2023-11-08 13:35 | W.DCSUMMARY ---
Discharge Summary
Discharge Data
Date of Admission: 11/07/23
Date of Discharge: 11/08/23
-
Pending Results: No
Hospital Course
78 years old female who presented with abdominal pain. She was found to have elevated liver function test. Ultrasound showed common bile duct dilation up to 12 mm with no stone or sludge. Patient was evaluated by gastroenterology and surgery.
MRI/MRCP showed no evidence of cholelithiasis, no overt focal pancreatic lesion, cystic masses or choledocholithiasis. No indication for cholecystectomy. Patient started to feel better. She was started on low-fat diet. Repeat liver function test
showed improvement. Patient was advised to follow-up with gastroenterology for outpatient endoscopic ultrasound evaluation. Patient remained hemodynamically stable. Her primary oncologist Dr. Miriam Hernández was updated. Patient was discharged home
in a stable condition after tolerating diet.
Discharge Plan
-
Patient Disposition: Home (Routine Discharge)
Discharge Diagnosis/Procedures: Biliary colic
You will need to follow with GI doctor.
Diet: Low Fat
Referrals:
Mehran Terrell MD [Family Provider] -
Armaan Licea DO [Active] - (Make an appointment with Dr. Licea in 2 weeks for follow-up)
Rola Wells DO [Active] - in one to two weeks
Prescriptions:
New
pantoprazole [Protonix] 40 mg tablet,delayed release (DR/EC)
40 mg PO DAILY Qty: 30 0RF
ondansetron HCl 4 mg tablet
4 mg PO Q8H PRN (Reason: nausea and vomiting) Qty: 20 0RF
Continued
atenolol 25 MG tablet
25 mg PO DAILY
escitalopram oxalate 20 MG tablet
20 mg PO DAILY
letrozole 2.5 mg tablet
2.5 mg PO DAILY
cholecalciferol (vitamin D3) 50 mcg (2,000 unit) Tablet
50 mcg PO DAILY
dapagliflozin propanediol [Farxiga] 10 mg tablet
10 mg PO DAILY
Ibrance
1 tab PO USEASDIRECTD
Patient Comments:
11/06/2023: Pt takes 3 weeks on, 1 week off. Pt began this cycle last (11/02/23)
Discharge Orders:
Discharge Patient (As Directed); Ordered 11/08/23
Ordered By: Margi Wren
Discharge Date and Time
Discharge Date/Time: 11/08/23 12:26
Print Language: HEBREW
[2023-11-09 13:58] LABS: Hepatitis B Surface Antigen Negative (Negative)
[2023-11-09 14:15] LABS: Hepatitis B Core Ab, Total Negative (Negative); Hepatitis B Surface Antibody Negative; Hepatitis C Antibody Negative (Negative)
[2023-11-09 14:28] LABS: Hepatitis A Antibody, Total Negative (Negative)
== END 2023-11-08 12:26 | disposition home or self-care (01) | DRG 445 ==
LOC: 4 EAST ACU 06:50
PROVIDERS: Nurse Practitioner; ADMITTING PHYSICIAN Internal Medicine; ATTENDING PHYSICIAN Internal Medicine; CONSULT PHYSICIAN Surgery; EMERGENCY PHYSICIAN Emergency Medicine; FAMILY PHYSICIAN Internal Medicine; OTHER PHYSICIAN Student in an Organized Health Care Education/Training Program
DX: K80.50 Calculus of bile duct without cholangitis or cholecystitis without obstruction (principal); C79.51 Secondary malignant neoplasm of bone; I10 Essential (primary) hypertension; E11.9 Type 2 diabetes mellitus without complications; F41.9 Anxiety disorder, unspecified; G47.00 Insomnia, unspecified; Z79.899 Other long term (current) drug therapy; Z79.84 Long term (current) use of oral hypoglycemic drugs; Z85.3 Personal history of malignant neoplasm of breast; Z79.811 Long term (current) use of aromatase inhibitors
CPT/HCPCS: 74181; 76700; 80053; 82248; 82962; 83690; 83735; 85025; 85027; 86704; 86705; 86706; 86708; 86709; 86803; 87340; 93005; 96361; 96365; 96375; 99285

== ENCOUNTER → 2023-11-13 12:00 | Outpatient (REF) | payer MEDICARE, OTHER, SELFPAY | LOC: DES 12:00 | PROVIDERS: ATTENDING PHYSICIAN Internal Medicine | DX: E11.9 Type 2 diabetes mellitus without complications (principal) | CPT/HCPCS: 99078 ==

== ENCOUNTER → 2023-11-20 12:00 | Outpatient (REF) | payer MEDICARE, OTHER, SELFPAY | LOC: DES 12:00 | PROVIDERS: ATTENDING PHYSICIAN Internal Medicine | DX: E11.9 Type 2 diabetes mellitus without complications (principal) | CPT/HCPCS: 99078 ==

== ENCOUNTER → 2023-11-27 12:00 | Outpatient (REF) | payer MEDICARE, OTHER, SELFPAY ==
--- NOTE | 2023-11-28 11:58 | PN.DIAED16 ---
This is to notify you that your patient with diabetes, DANY DUNNE ( 1945), has attended the entire series of Diabetes Self-Management Education Classes.
Class 1 (120 minutes): Diabetes Overview - monitoring, stress/psychosocial adjustment, support, goal setting
Class 2 (120 minutes): Meal Planning - serving sizes, menu plans
Class 3 (120 minutes): Introduction to Carbohydrate Counting, Analyzing Food Labels
Class 4 (120 minutes): Medication, Exercise and Activity
Class 5 (120 minutes): Sick Day Management, Strategies to Reduce Complications, Problem Solving, Resources
The following behavioral goals were identified:
Exercise more often
Make better food choices
Follow meal plan
Test BG-prescribed times
A follow-up call will be made within three to six months to evaluate attainment of these goals and to check post-program Hemoglobin A1c and overall progress. All class participants are encouraged to contact me if I can be any further assistance in
learning how to manage their diabetes.
Sincerely,
NOHEMY Andre-, [facility]
Director
Diabetes & Nutrition Services
--- NOTE | 2023-11-29 15:00 | PN.DIAED04 ---
Education Record
- Education Record
Class Attended: Class 5
DSME Class Series Code: [id number]
Instructor: Nurse Practitioner (NOHEMY Jo)
Class Curriculum:
Outpatient Diabetes Education Program:
Class 5 (120 minutes)
Prevent, detect, and treat acute complications
Prevent, detect, and treat chronic complications through risk reduction
Develop personal strategies to address psychosocial issues and concerns
Development of diabetes self-management support plan
Letter to physician with DSMS plan attached sent
Class Length (mins): 120
Post-Program Knowledge: Needs review / Assistance
Post-Test Score (%): 78
Post-Program Assessment
- Post-Program Assessment
Actual Weight: 60.328 kg
Blood pressure: 136/66
Post-Program Depression Survey Score: 15
Reviewing Previous Goals?: Yes
Pre-Program Depression Survey Score: 10
- Goals 1 Evaluation
Goals To Be Evaluated: Exercise more often
- Goals 2 Evaluation
Goals To Be Evaluated: Make better food choices. Follow meal plan
- Goals 3 Evaluation
Goals To Be Evaluated: Test BG-prescribed times
--- NOTE | 2023-11-29 15:45 | PN.DIAED12 ---
Depression is associated with poor diabetes self-management and perceived inability to control diabetes.
After careful consideration and multiple layers of input, the [facility]'s outpatient diabetes education program has implemented a depression screening tool. The tool is the PHQ-9 Quick Depression Assessment.
Each patient who attends the outpatient diabetes education class responds to 9 questions before the first class starts. At the completion of the 5 classes, each patient again responds to the same 9 questions. In theory, after completing the program
the hope is that the patient will feel somewhat more capable of diabetes self-management.
Your patient, DANY DUNNE ( 1945), scored 10 on the pre-depression screening and 15 on the post-depression screening which indicates moderate-severe depression.
If you require any additional information, please do not hesitate to contact me at [phone].
Sincerely,
NOHEMY Andre-THANG, [facility]
Director
Diabetes & Nutrition Services
== END ==
LOC: DES 12:00
PROVIDERS: ATTENDING PHYSICIAN Internal Medicine
DX: E11.9 Type 2 diabetes mellitus without complications (principal)
CPT/HCPCS: 99078

== ENCOUNTER → 2024-02-06 11:03 | Outpatient (REF) | payer MEDICARE, OTHER, SELFPAY | LOC: RCS 11:03 | PROVIDERS: ATTENDING PHYSICIAN Internal Medicine Cardiovascular Disease; FAMILY PHYSICIAN Internal Medicine | DX: R00.2 Palpitations (principal) | CPT/HCPCS: 93306 ==

== ENCOUNTER 2024-02-18 23:47 | Emergency (ER) | payer MEDICARE, OTHER, SELFPAY ==
[2024-02-18 23:48] VITALS: BP 140/62
[2024-02-19 00:33] VITALS: BMI 27.2
--- NOTE | 2024-02-19 00:53 | ED.GENMED ---
History of Present Illness
General
Chief Complaint: Dental Problem
Time Seen by Provider: 02/19/24 00:20
History of Present Illness
History of Present Illness:
78-year-old female with history of stage IV breast cancer on oral chemotherapy presenting to the emergency department with concern of a cracked versus loose tooth. Patient reports prior to arrival she was eating and felt a crack in her tooth.
Since then has noticed that her tooth is loose, around tooth #29. Denies any significant pain. Has a dentist appointment coming up in the next few weeks. She is concerned that she is going to go to bed and swallow her tooth because she grinds her
teeth. Denies additional acute medical complaints
Past History
Past History
ED Past Medical History: Other (noncontributory )
ED Past Surgical History: Other (noncontributory )
Phy Exam
Physical Exam
Physical Exam:
General: Well-appearing, no clinical signs of dehydration, nontoxic and in no acute distress
HEENT: protecting airway. Cracked and loose tooth at #29, however is not avulsed. No tenderness on palpation
Neck: appears supple
CV: Normal heart rate
Resp: No accessory muscle use, no increased work of breathing
Abd: Soft and non-distended, no tenderness to palpation, normal bowel sounds
Extremities: No deformities, no swelling
Neuro: alert, no focal neurologic deficit
: deferred
Rectal: deferred
Psych: Normal affect
Skin: Intact
Course
Vital Signs
Initial and Last Documented VS:
Initial Vital Signs
Temp Pulse Resp BP Pulse Ox
97.8 F 66 20 140/62 98
02/18/24 23:48 02/18/24 23:48 02/18/24 23:48 02/18/24 23:48 02/18/24 23:48
Last Documented Vital Signs
Temp Pulse Resp BP Pulse Ox
97.8 F 66 20 140/62 98
02/18/24 23:48 02/18/24 23:48 02/18/24 23:48 02/18/24 23:48 02/18/24 23:48
MDM/Problems Addressed
MDM/Problems Addressed:
78-year-old female presenting to the emergency department for concern of a loose tooth. Vital signs are normal.
On exam, patient is resting comfortably, no acute distress or discomfort. Airway is intact. Patient does have loose tooth #29, however no present avulsion. No indication to pull the tooth at this time. Attempt to use tooth cement to stabilize
the tooth given patient's concerns that it is going to break and she is going to swallow it, however unsuccessful. Advise using a mouthguard if desired to help with grinding. Otherwise feel stable for discharge, advised calling the dentist
tomorrow. Return precautions discussed and patient verbalized understanding.
*Critical Care Note
Total Time (30-74mins, 75-104mins- exclusive of procedures): Not Applicable
ED Attending Note
-
Portions of this chart may have been created with voice recognition software.� Occasional wrong word or��sound alike� substitutions may have occurred due to the inherent limitations of voice recognition software.
Discharge Plan
Departure
Prescriptions:
No Action
atenolol 25 MG tablet
25 mg PO DAILY
escitalopram oxalate 20 MG tablet
20 mg PO DAILY
letrozole 2.5 mg tablet
2.5 mg PO DAILY
cholecalciferol (vitamin D3) 50 mcg (2,000 unit) Tablet
50 mcg PO DAILY
dapagliflozin propanediol [Farxiga] 10 mg tablet
10 mg PO DAILY
Ibrance
1 tab PO USEASDIRECTD
Patient Comments:
11/06/2023: Pt takes 3 weeks on, 1 week off. Pt began this cycle last (11/02/23)
pantoprazole [Protonix] 40 mg tablet,delayed release (DR/EC)
40 mg PO DAILY Qty: 30 0RF
ondansetron HCl 4 mg tablet
4 mg PO Q8H PRN (Reason: nausea and vomiting) Qty: 20 0RF
Referrals:
Mehran Terrell MD [Family Provider] -
Interventions
Interventions:
*Risk Screen - Suicide Last Done: 02/18/24 23:48
*General Assessment Last Done: 02/19/24 00:25
*Neglect/Abuse Screening Last Done: 02/18/24 23:48
ED- Fall Risk Assessment Last Done: 02/19/24 00:25
*ED COVID-19 Vaccine History Last Done: 02/19/24 00:25
Discharge Date and Time
Print Language: ITALIAN
== END 2024-02-19 01:15 | disposition home or self-care (01) ==
LOC: EMR 23:47
PROVIDERS: EMERGENCY PHYSICIAN Student in an Organized Health Care Education/Training Program; FAMILY PHYSICIAN Internal Medicine
DX: K08.89 Other specified disorders of teeth and supporting structures (principal); Z85.3 Personal history of malignant neoplasm of breast
CPT/HCPCS: 99282

== ENCOUNTER 2024-12-21 11:46 | Emergency (ER) | payer MEDICARE, OTHER, SELFPAY ==
[2024-12-21 11:48] VITALS: BP 146/84
[2024-12-21 12:21] VITALS: BP 122/68
[2024-12-21 12:30] LABS: Hematocrit 34.8 % (37.0-47.0); Hemoglobin 12.2 g/dL (12.0-16.0); Mean Corp Hgb Conc. 35.1 g/dL (33.0-37.0); Mean Corpuscular Volume 103.6 fL (81.0-99.0); Nucleated Red Blood Cells % 0 %; Platelet Count 146 10^3/uL (130-400); Red Cell Dist. Width 14.5 % (11.5-14.5)
[2024-12-21 12:48] LABS: ALT (SGPT) 20 U/L (0-35); AST (SGOT) 27 U/L (14-36); Albumin 4.1 g/dl (3.5-5.0); Alkaline Phosphatase 51 U/L (38-126); Blood Urea Nitrogen 11 mg/dl (7-17); Calcium 8.7 mg/dl (8.4-10.2); Carbon Dioxide 23 mmol/L (22-30); Chloride 101 mmol/L (98-107); Estimated Creatinine Clearance 68 ml/min; Glucose 190 mg/dl (70-99); Lipase 122 U/L (23-300); Potassium 3.9 mmol/L (3.5-5.1); Sodium 131 mmol/L (135-145); Total Protein 6.9 g/dl (6.3-8.2); eGFR > 60.00
[2024-12-21] MEDS: ZOFRAN 4 MG IV (12:53)
[2024-12-21] MEDS: PEPCID 20 MG IV (12:53)
[2024-12-21] MEDS: NSS 1000 IV (12:54)
[2024-12-21] MEDS: DILAUDID 0.5 MG IV (12:54)
[2024-12-21 13:33] LABS: Troponin I < 0.012 ng/ml
[2024-12-21 14:00] VITALS: BP 118/74
--- NOTE | 2024-12-21 15:24 | ED.GENMED ---
History of Present Illness
General
Chief Complaint: Abdominal Pain
Time Seen by Provider: 12/21/24 12:09
Past History
Past History
ED Past Medical History: Other (noncontributory )
ED Past Surgical History: Other (noncontributory )
Course
Orders/Labs/Results
Orders:
Orders
12/21/24 11:50
EKG [Electrocardiogram (*1)] Urgent
Reason for Study: Abdominal Pain
EKG- Treatment ONCE
12/21/24 12:22
Complete Blood Count/With Diff Urgent
Comprehensive Metabolic Panel Urgent
Lipase Urgent
12/21/24 12:47
CT Abd/Pel (IV only)-DH only Urgent
Comment:
Reason For Exam: severe upper abd pain
0.9% Sodium Chloride 1000 ml [Nss] 1,000 ml IV BOLUS
Famotidine [Pepcid] 20 mg IV NOW STA
HYDROmorphone [Dilaudid] 0.5 mg IV NOW STA
Ondansetron Injectable [Zofran] 4 mg IV NOW STA
12/21/24 12:55
Troponin I Urgent
Abnormal Lab Results
12/21/24
12:22
WBC 2.7 L 10^3/uL
(4.8-10.8)
RBC 3.36 L 10^6/uL
(4.20-5.40)
Hct 34.8 L %
(37.0-47.0)
MCV 103.6 H fL
(81.0-99.0)
MCH 36.3 H pg
(27.0-31.0)
Absolute Lymphs (auto) 0.8 L 10^3/uL
(1.2-3.4)
Immature Gran % 0.7 H %
(0-0.5)
Monocytes % 9.7 H %
(1.7-9.3)
Basophils % 2.2 H %
(0-2)
Sodium 131 L mmol/L
(135-145)
Glucose 190 H mg/dl
(70-99)
12/21/24 12:22
12/21/24 12:22
Vital Signs
Initial and Last Documented VS:
Initial Vital Signs
Temp Pulse Resp BP Pulse Ox
36.9 C 76 16 146/84 98
12/21/24 11:48 12/21/24 11:48 12/21/24 11:48 12/21/24 11:48 12/21/24 11:48
Last Documented Vital Signs
Temp Pulse Resp BP Pulse Ox
37.0 C 69 18 118/74 100
12/21/24 12:00 12/21/24 14:00 12/21/24 14:00 12/21/24 14:00 12/21/24 14:00
MDM/Problems Addressed
Differential Diagnosis Includes:
see MDM
MDM/Problems Addressed:
Note:
CHIEF COMPLAINT(S)
- Severe abdominal pain
HISTORY OF PRESENT ILLNESS
The patient is a 79-year-old female with a history of metastatic breast cancer and diabetes, presenting with severe abdominal pain. She reports that she felt fine the previous night and when she woke up this morning. She experienced the onset of
pain after going downstairs, preparing a bottle of water, and sitting on the sofa with her cat. The pain began approximately then and is described as a terrible sensation, ramya to 'knives,' localized to her entire upper abdomen and rating it as a 9
or 10 on a pain scale. The patient reports accompanying nausea with episodes of dry heaving and later was able to vomit a little. Notably, she denies any recent heart disease and states her pain does not radiate to her back. She is currently off her
cancer medication for a week due to white blood cell count management.
The patient also mentioned a previous finding of a dilated common bile duct noted during an MRI for which she did not follow up on the recommended endoscopic procedure. She experiences diarrhea often after meals, attributing it to her cancer
medication but is currently not on it. She has no known liver disease.
The patients meal last night consisted of scrambled eggs, grider, and a roll. She has been experiencing loud stomach growling in the mornings, but today it did not occur. She denies any history of gastrointestinal ulcers, gastritis, or black stools.
PAST MEDICAL AND SURIGICAL HISTORY
- Metastatic breast cancer (Stage IV), currently affecting the bones
- Diabetes
- History of premature atrial contractions managed with atenolol
CHRONIC MEDICAL CONDITIONS SIGNIFICANTLY AFFECTING CARE
- Stage IV metastatic breast cancer
- Diabetes
SOCIAL DETERMINANTS AFFECTING HEALTH
- The patient indicates she did not follow through with recommended medical procedures, stating 'Im a bad patient,' implying a possible lack of adherence to medical advice due to personal reasons which may affect her care.
MEDICATIONS
- Empagliflozin (Farxiga) for diabetes
- Atenolol for premature atrial contractions
REVIEW OF SYSTEMS
- Gastrointestinal: Severe upper abdominal pain, diarrhea after meals, nausea, dry heaving, occasional vomiting
- No recent heart disease symptoms
PHYSICAL EXAM
- Nursing notes reviewed and vital signs reviewed
- The patient reports the abdomen is tender without an official physical exam documented in the transcript.
PROBLEM LIST
- Acute: Severe upper abdominal pain, nausea, dry heaving
- Chronic: Metastatic breast cancer to the bones, Diabetes
PLAN
- Administration of Ondansetron for nausea
- Administration of Dilaudid for pain management
- Avoid oral intake and provision of intravenous fluids if necessary
DIFFERENTIAL DIAGNOSIS
The Differential Diagnosis includes, in no particular order and is not limited to:
- Cholecystitis or biliary colic
- Pancreatitis
- Peptic ulcer disease
- Gastritis
- Gastroenteritis
- Small bowel obstruction
- Malignancy-related pain
- Diabetic gastroenteropathy
- Hepatic dysfunction
- Other abdominal or gastrointestinal causes of pain
*Pulse Oximetry
SaO2: 100
Oxygen Mode of Delivery: Room air
ED Attending Note
-
Portions of this chart may have been created with voice recognition software.� Occasional wrong word or��sound alike� substitutions may have occurred due to the inherent limitations of voice recognition software.
Discharge Plan
Departure
Prescriptions:
No Action
atenolol 25 MG tablet
25 mg PO DAILY
escitalopram oxalate 20 MG tablet
20 mg PO DAILY
letrozole 2.5 mg tablet
2.5 mg PO DAILY
cholecalciferol (vitamin D3) 50 mcg (2,000 unit) Tablet
50 mcg PO DAILY
dapagliflozin propanediol [Farxiga] 10 mg tablet
10 mg PO DAILY
Ibrance
1 tab PO USEASDIRECTD
Patient Comments:
11/06/2023: Pt takes 3 weeks on, 1 week off. Pt began this cycle last (11/02/23)
pantoprazole [Protonix] 40 mg tablet,delayed release (DR/EC)
40 mg PO DAILY Qty: 30 0RF
ondansetron HCl 4 mg tablet
4 mg PO Q8H PRN (Reason: nausea and vomiting) Qty: 20 0RF
Referrals:
Mehran Terrell MD [Family Provider, Internal Medicine]
Interventions
Interventions:
*Risk Screen - Suicide Last Done: 12/21/24 11:48
*General Assessment Last Done: 12/21/24 11:48
*Neglect/Abuse Screening Last Done: 12/21/24 11:48
*ED- Fall Risk Assessment Last Done: 12/21/24 11:48
*ED COVID-19 Vaccine History Last Done: 12/21/24 11:48
*ED Influenza Vaccine History Last Done: 12/21/24 11:48
[facility]-Izcahf-Drejplhxkm Assessment Last Done: 12/21/24 12:24
Discharge Date and Time
Print Language: ANGOLAN
[2024-12-21 16:33] LABS: Urine Character Clear (Clear)
[2024-12-21 17:24] LABS: Urine Red Blood Cell 0-2 /HPF (0-2); Urine Squamous Cell >30 /LPF (Few); Urine White Cell 0-2 /HPF (0-5)
== END 2024-12-21 16:47 | disposition home or self-care (01) ==
LOC: EMR 11:46
PROVIDERS: Physician Assistant; Student in an Organized Health Care Education/Training Program; EMERGENCY PHYSICIAN Emergency Medicine; FAMILY PHYSICIAN Internal Medicine
DX: R10.9 Unspecified abdominal pain (principal); C50.919 Malignant neoplasm of unspecified site of unspecified female breast; C79.51 Secondary malignant neoplasm of bone; E11.9 Type 2 diabetes mellitus without complications
CPT/HCPCS: 99284; 96374; 96375; 96361; 74177; 80053; 81003; 81015; 83690; 84484; 85025; 93005; Q9967